=== PATIENT | male | born 1970 | race Hispanic/Latino ===

== ENCOUNTER 2021-11-11 07:07 | Day surgery (SDC) | payer MEDICARE ==
[2021-11-11 07:46] LABS: Eosinophils # (Auto) 0.1 K/mm3 (0.0-0.4); Eosinophils % (Auto) 2.2 % (0.0-4.3); Hematocrit 40.2 % (35.5-45.6); Hemoglobin 13.2 gm/dl (11.8-15.2); Lymphocytes # (Auto) 0.9 K/mm3 (1.2-5.4); Lymphocytes % (Auto) 19.4 % (13.4-35.0); Mean Corpuscular HGB Conc 33 % (32-34); Mean Corpuscular Volume 92 fl (84-94); Monocytes # (Auto) 0.4 K/mm3 (0.0-0.8); Monocytes % (Auto) 9.2 % (0.0-7.3); Platelet Count 159 K/mm3 (140-440); Red Blood Count 4.39 M/mm3 (3.65-5.03); Red Cell Distribution Width 13.8 % (13.2-15.2)
[2021-11-11 07:59] LABS: Calcium 9.6 mg/dL (8.4-10.2)
[2021-11-11 08:11] LABS: INR 0.92 (0.87-1.13)
[2021-11-11 08:12] LABS: Partial Thromboplastin Time 29.8 Sec. (24.2-36.6)
[2021-11-11] MEDS: SODIUM CHLORIDE 0.9% 500 ML 500 ML IV SCH ×2 (08:13→09:27)
[2021-11-11] MEDS ORDERED: HEPARIN/NS 5000 UNIT/500ML 1,000 ML IR ONE (08:53)
[2021-11-11] MEDS ORDERED: HEPARIN 10,000 UNITS/10 ML VIAL ONE (08:54)
--- NOTE | 2021-11-11 09:08 | Short Stay Summary ---
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 He presented with complaints of severe left leg swelling and had a work-up that revealed no evidence of DVT however his left iliac stent is occluded. He states he continues to take Eliquis 5 mg p.o. twice daily as well as elevating his leg however this does not relieve his symptoms. He is in need of a venogram with possible intervention. He was given the risk, benefits, and alternative procedures and consented to the procedure. - History Past Medical History: arthritis, diabetes, DVT, hypertension Past Surgical History: Other (Bilateral iliac vein angioplasty and stenting) Social history: no significant social history - Allergies and Medications Current Medications: Allergies clindamycin Allergy (Verified 11/22/14 18:09) Anaphylaxis Home Medications Medication Instructions Recorded Confirmed Last Taken Type metFORMIN [Glucophage] 1,000 mg PO BID 11/23/14 11/11/21 11/08/21 History 1000 mg Sitagliptin Phosphate [Januvia] 100 mg PO DAILY 12/26/14 11/11/21 11/10/21 History 100 mg oxyCODONE ER [OxyCONTIN ER TAB] 30 mg PO Q6H PRN 12/26/14 11/11/21 11/11/21 06:00 History Apixaban [Eliquis] 5 mg PO BID 11/11/21 11/11/21 11/08/21 History 5 mg Gabapentin [Gralise] 600 mg PO BID 11/11/21 11/11/21 11/09/21 History 600 mg Insulin Glargine [Lantus VIAL] 15 units SQ QHS 11/11/21 11/11/21 11/08/21 History 15 units Lisinopril [Zestril TAB] 30 mg PO DAILY 11/11/21 11/11/21 11/09/21 History 30 mg Active Medications Sodium Chloride (Nacl 0.9% 500 Ml) 500 mls @ 50 mls/hr IV DIRECT KATIE Stop: 11/11/21 20:00 Last Admin: 11/11/21 08:13 Dose: 50 mls/hr - Physical exam General appearance: no acute distress Lungs: Normal air movement Breasts: deferred Heart: Regular rate Gastrointestinal: normal Male Genitourinary: deferred Rectal Exam: deferred Extremities: abnormal (Bilateral lower extremity edema with left greater than right, bilateral dermatosclerosis) - Brief post op/procedure progress note Date of procedure: 11/11/21 Pre-op diagnosis: Bilateral Lower Extremity Edema with Occlusion of Left Iliac Vein Stent Post-op diagnosis: same Procedure: 1. Ultrasound-Guided Access Left Femoral Vein 2. Additional Ultrasound-Guided Access Left Femoral Vein 3. Left Lower Extremity Venogram 4. Catheter in left External Iliac Vein 5. Radiologic Supervision with Interpretation 6. Monitored Moderate Sedation (Total Anesthesia Time: 87 Minutes) Anesthesia: MAC, regional Surgeon: BINH CHAVARRIA Estimated blood loss: minimal Pathology: none Condition: stable - Disposition Condition at discharge: Good Disposition: 01 HOME / SELF CARE / HOMELESS Short Stay Discharge Plan Activity: other (No strenuous activity for 24 hours.) Wound: remove dressing (Okay to remove left groin dressing in 24 hours.) Follow up with: BINH CHAVARRIA MD [Staff Physician] - 14 Days
[2021-11-11] MEDS: fentaNYL 100 MCG/2 ML INJ ONE ×4 (09:26→10:58)
[2021-11-11] MEDS: LIDOCAINE (1%) 10 MG/1 ML VIAL 20 ML MDV ONE ×3 (09:26→09:47)
[2021-11-11] MEDS: MIDAZOLAM 2 MG/2 ML INJ ONE ×3 (09:26→10:59)
[2021-11-11] MEDS ORDERED: HEPARIN/NS 5000 UNIT/500ML 500 ML IR ONE (09:57)
[2021-11-11] MEDS ORDERED: fentaNYL 100 MCG/2 ML INJ ONE (10:11)
[2021-11-11] MEDS ORDERED: LIDOCAINE (1%) 10 MG/1 ML VIAL 20 ML MDV ONE (10:23)
--- NOTE | 2021-11-11 12:14 | Operative Report ---
Operative Report Operative Report: Date of Procedure: 11/11/2021 Pre-operative Diagnosis: Bilateral Lower Extremity Swelling with Occlusion of Le ft Iliac Vein Stent Post-operative Diagnosis: Same Procedure(s): 1. Ultrasound-Guided Access Left Femoral Vein 2. Additional Ultrasound-Guided Access Left Femoral Vein 3. Left Lower Extremity Venogram 4. Catheter in left External Iliac Vein 5. Radiologic Supervision with Interpretation 6. Monitored Moderate Sedation (Total Anesthesia Time: 87 Minutes) Surgeon: Ricky Fulton M.D. Lead Applications Developer: None Anesthesia: Local/Monitored Moderate Sedation Total Anesthesia Time: 87 Minutes EBL: Minimal Counts: Correct Complications: None Condition: Stable Specimen: None Indication: The patient is a 51-year-old male with a history of DVT and stenting of bilateral iliac veins. He presented with complaints of left lower extremity swelling and was found to have occlusion of his left iliac vein stents. He is in need of possible intervention to relieve his symptoms. He was given the risk, benefits, and alternative procedures and consented to the procedure. Angiographic Findings: The left lower extremity venogram revealed multiple collaterals in the left lower extremity with cross pelvic flow to the right lower extremity. The proximal common femoral vein, external iliac vein, and common iliac vein were all occluded. Despite accessing the stent percutaneously and passing wires into the stent I was unable to recannulate the stent at this time. Description of Procedure: The patient was brought to the [facility] and laid in supine position. After timeout was performed bilateral groins were prepped and draped in normal sterile fashion. Ultrasound was used to identify the left common femoral vein, below the stents, and confirm patency. Once patency was confirmed overlying skin and soft tissue was anesthetized with lidocaine. An 11 blade was used to make a small stab incision and then a 21-gauge micropuncture needle was used with ultrasound guidance accessed the left common femoral vein in antegrade fashion. A 0.018 micropuncture wire was advanced into the vein after removing the needle a micropuncture sheath was placed by Seldinger technique. I advanced a 0.035 J- wire into the vein and then exchanged the micropuncture sheath for 5 [place] 11 cm sheath by Seldinger technique. I used multiple catheters and wires in an attempt to cannulate the stent, within the proximal common femoral vein, however this was unsuccessful. I then used ultrasound to identify the stent within the left common femoral vein and then anesthetize the skin and overlying soft tissue. I used a 21-gauge micropuncture needle to access the stent and was able to pass a Bentson wire into the distal femoral vein. I advanced the 0.035 trailblazer over the wire and then exchanged the wire for a 0.035 glide advantage wire. I exchanged my 5 [place] sheath for a 7 [place] sheath and then used then EnSnare to snare the glide advantage wire and pull it out through the left femoral access. I then attempted to advance my sheath into the stent however this was unsuccessful and eventually wire access was lost. I used ultrasound to access the stent and additional time using an 18-gauge access needle and was able to advance the glide advantage wire into the stent and attempted to advance it through the stents and into the IVC however I was unable to do this. The wire would not advance past the proximal external iliac vein where there were multiple stents overlapped. I attempted advancing the sheath into the stent however it would not advance to the interstices of the stent. At this time I aborted any further attempts of recannulated and stent with the plan to bring the patient back when additional equipment is available. The patient tolerated the procedure well. All sponge, needle, and instrument counts were correct. The patient was transported to the recovery area in stable condition.
[2021-11-11 12:36] VITALS: BP 127/73
== END 2021-11-11 12:45 | disposition home or self-care (01) ==
LOC: CATHLABREC 07:07
PROVIDERS: ATTEND Surgery Vascular Surgery
DX: I87.1 Compression of vein (principal); I10 Essential (primary) hypertension; M19.90 Unspecified osteoarthritis, unspecified site; F41.9 Anxiety disorder, unspecified; Z88.8 Allergy status to other drugs, medicaments and biological substances; Z79.899 Other long term (current) drug therapy; Z79.4 Long term (current) use of insulin; Z98.890 Other specified postprocedural states; Z86.718 Personal history of other venous thrombosis and embolism; Z83.3 Family history of diabetes mellitus; Z82.49 Family history of ischemic heart disease and other diseases of the circulatory system
CPT/HCPCS: 36012; 36415; 75820; 80048; 85025; 85610; 85730; 99156; 99157; C1725; C1751; C1769; C1773; C1887; J1644; J2250; J3010; J7040; Q9967